=== PATIENT | male | born 1975 | race Caucasian/White ===

== ENCOUNTER 2019-01-29 07:16 | Emergency (ER) | payer OTHER ==
[~2019-01-29] VITALS: Ht 175.3 cm; Wt 88.5 kg
[~2019-01-29 07:16] MED LIST: RXHYDACE PO; TRAM50 PO
[2019-01-29] MEDS ORDERED: Bactrim Ds Tab1 EACH PO (08:05)
[2019-01-29] MEDS ORDERED: CEPH500 PO (08:05)
== END 2019-01-29 08:14 | disposition home or self-care (01) ==
LOC: ER 07:16
DX: L02.31 Cutaneous abscess of buttock (principal); Z87.891 Personal history of nicotine dependence
CPT/HCPCS: 46040; 99282-25

== ENCOUNTER 2019-04-22 10:42 | Emergency (ER) | payer OTHER ==
[~2019-04-22] VITALS: Ht 175.3 cm; Wt 81.7 kg
[~2019-04-22 10:42] MED LIST changes: +Bactrim Ds Tab1 EACH PO; +CEPH500 PO
[2019-04-22] MEDS ORDERED: Monodox100 MG PO (10:59)
== END 2019-04-22 11:05 | disposition home or self-care (01) ==
LOC: ER 10:42
DX: L03.314 Cellulitis of groin (principal); Z87.891 Personal history of nicotine dependence
CPT/HCPCS: 99283